=== PATIENT | female | born 1965 ===

== ENCOUNTER 2016-09-17 13:41 | Emergency (ER) | payer OTHER ==
[2016-09-17 13:42] VITALS: BMI 28.1
[2016-09-17 13:51] VITALS: BP 137/87; PULSE 70; RESP 16; TEMP 98.4; O2SAT 97
--- NOTE | 2016-09-17 13:51 | ED PDOC ---
Arrival/HPI - General Time Seen by Provider: 09/17/16 13:47 Historian: Patient - History of Present Illness Narrative History of Present Illness (Text): 09/17/16 13:48 51 y/o female, pmh including htn, nkda, post menopausal, c/o lt. elbow pain x 2 days. Pt. stated that she recently started exercising 2 days ago, noticed to have lt. elbow pain after the continuous/repetitive movement, no numbness or tingling, pain aggravated by left elbow extension with the resistance, no fever or chills, no chest pain or shortness of breath, no palpitation, no rash, no urinary symptoms, no other medical or psychological complaints. Past Medical History - Provider Review Nursing Documentation Reviewed: Yes - Infectious Disease Hx of Infectious Diseases: None - Cardiac Hx Hypertension: Yes - Pulmonary Hx Respiratory Disorders: No - Neurological Hx Migraine: Yes - HEENT Hx HEENT Disorder: No - Renal Hx Renal Disorder: No - Endocrine/Metabolic Hx Endocrine Disorders: No - Hematological/Oncological Hx Blood Disorders: No - Integumentary Hx Dermatological Disorder: No - Musculoskeletal/Rheumatological Hx Falls: No - Gastrointestinal Hx Gastrointestinal Disorders: No - Genitourinary/Gynecological Hx Genitourinary Disorders: No - Psychiatric Hx Psychophysiologic Disorder: No Hx Substance Use: No - Surgical History Hx Section: Yes Family/Social History - Physician Review Nursing Documentation Reviewed: Yes Family/Social History: Unknown Family HX Smoking Status: Never Smoked Hx Alcohol Use: No Hx Substance Use: No Allergies/Home Meds Allergies/Adverse Reactions: Allergies No Known Allergies Allergy (Verified 09/17/16 13:45) Review of Systems - Review of Systems Constitutional: absent: Fatigue, Fevers Eyes: absent: Vision Changes ENT: absent: Hearing Changes Respiratory: absent: SOB, Cough Cardiovascular: absent: Chest Pain Gastrointestinal: absent: Abdominal Pain, Nausea, Vomiting Musculoskeletal: Arthralgias. absent: Back Pain, Neck Pain, Joint Swelling, Myalgias Skin: absent: Rash, Pruritis, Skin Lesions Neurological: absent: Headache, Dizziness Psychiatric: absent: Anxiety, Depression, Suicidal Ideation Physical Exam Vital Signs Reviewed: Yes Temperature: Afebrile Blood Pressure: Normal Pulse: Regular Respiratory Rate: Normal Appearance: Positive for: Well-Appearing, Non-Toxic, Comfortable Pain Distress: Moderate Mental Status: Positive for: Alert and Oriented X 3 - Systems Exam Head: Present: Atraumatic, Normocephalic Pupils: Present: PERRL Extroacular Muscles: Present: EOMI Conjunctiva: Present: Normal Mouth: Present: Moist Mucous Membranes Pharnyx: No: ERYTHEMA, EXUDATE, TONSILS ENLARGED, Peritonsilar Swelling Neck: Present: Normal Range of Motion Respiratory/Chest: Present: Clear to Auscultation, Good Air Exchange. No: Respiratory Distress, Accessory Muscle Use Cardiovascular: Present: Regular Rate and Rhythm, Normal S1, S2. No: Murmurs Abdomen: Present: Normal Bowel Sounds. No: Tenderness, Distention, Peritoneal Signs Back: Present: Normal Inspection Upper Extremity: Present: Normal Inspection, Other (Lt. elbow: +ttp on the lateral epicondyle region with no swelling or redness, no erythematous or cellulitis, no streaking or ulcer, FROM without limitation with pain upon lt. elbow extension against the resistance, sensation intact, motor 5/5, +radial pulse, capillary refill< 2 seconds, neurovascular intact. ). No: Cyanosis, Edema Lower Extremity: Present: Normal Inspection. No: Edema Neurological: Present: GCS=15, CN II-XII Intact, Speech Normal Skin: Present: Warm, Dry, Normal Color. No: Rashes Psychiatric: Present: Alert, Oriented x 3, Normal Insight, Normal Concentration Medical Decision Making ED Course and Treatment: 09/17/16 13:51 -Pt. is post menopausal -Toradol IM -Discharge home with indomethacin, counter elbow brace, ice compression, avoid exercise, follow up with your own pmd and orthopedic within 2 days, return to the ER for any new or worsening signs or symptoms. - PA / MANUFACTURE SPECIALIST / Resident Statement MD/DO has reviewed & agrees with the documentation as recorded. Disposition/Present on Arrival - Present on Arrival Any Indicators Present on Arrival: No History of DVT/PE: No History of Uncontrolled Diabetes: No Urinary Catheter: No History of Decub. Ulcer: No History Surgical Site Infection Following: None - Disposition Have Diagnosis and Disposition been Completed?: Yes Diagnosis: Tennis elbow Disposition: HOME/ ROUTINE Disposition Time: 13:53 Patient Plan: Discharge Condition: GOOD Additional Instructions: Discharge home with indomethacin, counter elbow brace, ice compression, avoid exercise, follow up with your own pmd and orthopedic within 2 days, return to the ER for any new or worsening signs or symptoms. Prescriptions: Indomethacin [Indocin] 50 mg PO TID #30 cap Referrals: Get Carrillo MD [Staff Provider] - Follow up with primary [facility] at [facility] [Outside] - Follow up with primary Forms: WORK NOTE
== END 2016-09-17 14:16 | disposition home or self-care (01) ==
LOC: ED 13:41
DX: M77.12 Lateral epicondylitis, left elbow (principal)
CPT/HCPCS: 96372; 99282; J1885

== ENCOUNTER 2017-03-29 14:53 | Observation (INO) | payer OTHER ==
--- NOTE | 2017-03-29 15:10 | ED PDOC ---
Arrival/HPI - General Time Seen by Provider: 03/29/17 15:02 Historian: Patient, Family, Clinical Implementation Specialist (daughter) - Critical Care Critical Care Minutes: 60 minutes - History of Present Illness Narrative History of Present Illness (Text): 52yoF, htn, who states having generalized headache, with left sided weakness, and associated generalized chest pain. otherwise no n/v/keene/dizziness/sob/abd pain/pain with urination/numbness. 03/29/17 15:07 Time/Duration: 1 hour Past Medical History - Provider Review Nursing Documentation Reviewed: Yes - Travel History Have you recently traveled outside [place] w/in the past 3 mons?: No - Infectious Disease Hx of Infectious Diseases: None - Cardiac Hx Hypertension: Yes - Pulmonary Hx Respiratory Disorders: No - Neurological Hx Migraine: Yes - HEENT Hx HEENT Disorder: No - Renal Hx Renal Disorder: No - Endocrine/Metabolic Hx Endocrine Disorders: No - Hematological/Oncological Hx Blood Disorders: No - Integumentary Hx Dermatological Disorder: No - Musculoskeletal/Rheumatological Hx Falls: No - Gastrointestinal Hx Gastrointestinal Disorders: No - Genitourinary/Gynecological Hx Genitourinary Disorders: No - Psychiatric Hx Psychophysiologic Disorder: No Hx Substance Use: No - Surgical History Hx Section: Yes Family/Social History - Physician Review Nursing Documentation Reviewed: Yes Family/Social History: No Known Family HX Smoking Status: Never Smoked Hx Alcohol Use: No Hx Substance Use: No Allergies/Home Meds Allergies/Adverse Reactions: Allergies No Known Allergies Allergy (Verified 03/29/17 15:56) Home Medications: Home Meds Medication Instructions Recorded Confirmed Atenolol [Tenormin] 50 mg PO DAILY 03/29/17 03/29/17 Hctz 12.5 12.5 mg PO DAILY 03/29/17 03/29/17 Ibuprofen [Motrin Ib] 600 mg PO PRN PRN 03/29/17 03/29/17 Nitroglycerin [Nitrostat] 0.4 mg SL PRN PRN 03/29/17 03/29/17 Review of Systems - Review of Systems Constitutional: Fatigue Eyes: Normal ENT: Normal Respiratory: Normal Cardiovascular: Chest Pain Gastrointestinal: Normal Genitourinary Female: Normal Musculoskeletal: Normal Skin: Normal Neurological: Headache, Focal Weakness, Speech Changes Endocrine: Normal Hemo/Lymphatic: Normal Psychiatric: Normal Physical Exam Vital Signs Reviewed: Yes Vital Signs Temp Pulse Resp BP Pulse Ox 03/29/17 17:12 64 14 120/65 99 03/29/17 15:44 97.9 F 65 18 135/76 96 Appearance: Positive for: Well-Appearing, Non-Toxic, Comfortable Pain Distress: None Mental Status: Positive for: Alert and Oriented X 3 - Systems Exam Head: Present: Atraumatic, Normocephalic Pupils: Present: PERRL Extroacular Muscles: Present: EOMI Conjunctiva: Present: Normal Ears: Present: Normal Mouth: Present: Moist Mucous Membranes Pharnyx: Present: Normal Nose (External): Present: Atraumatic Nose (Internal): Present: Normal Inspection Neck: Present: Normal Range of Motion Respiratory/Chest: Present: Clear to Auscultation, Good Air Exchange Cardiovascular: Present: Regular Rate and Rhythm Abdomen: No: Tenderness, Distention, Normal Bowel Sounds, Peritoneal Signs, Rebound, Guarding, McBurney's Point Tender, Rovsing's Sign Present, Hernias, Feeding Tubes, Ostomy Tubes, Mass/Organomegaly, Scars, Other Upper Extremity: Present: Normal Inspection Lower Extremity: Present: Normal Inspection Neurological: Present: GCS=15, CN II-XII Intact, Motor Func Grossly Intact, Other (speech slowed, left upper/lower subtle weakness vs right.) Skin: Present: Warm, Normal Color Psychiatric: Present: Alert, Oriented x 3, Normal Insight Medical Decision Making ED Course and Treatment: 03/29/2017 15:[address] IMPRESSION: Normal CT of the Head. Dictator: Roseann Kam MD 03/29/17 16:03 you were treated in the ED today for left facial tingling and left sided weakness and initially chest pain which has resolved otherwise without any nausea/vomiting/headache/dizziness/difficulty breathing/chest pain/abdomen pain/ numbness/tingling/loss of limb function/pain with urination. trop neg, wbc neg, radiology ct head negative and chest xray negative, ECG nsr, discussed with Dr. Jack neurology who stated MRI brain without contrast and if negative cleared from stroke, observed done in the ED with improvement. 03/29/2017 16:15 Chest X-ray IMPRESSION: No interval acute cardiopulmonary pathology noted. Dictator: Sana Kam MD 03/29/17 16:29 CXR no acute. 03/29/17 16:59 03/29/17 18:36 d/w Dr. Brand and Dr. Peoples regarding pt with resolved symptoms of left sided weakness, chest pain, d-dimer pending and MRI pending and hospital team to followup. once d-dimer returns will admit if negative. can give dose of asprin 324mg per Dr. Brand. 03/29/17 19:46 d-dimer 218. 03/29/17 19:47 03/29/17 19:47 d;w Dr. Peoples and pt to be admitted to Dr. Gao - Lab Interpretations Lab Results: 03/29/17 15:28 03/29/17 15:28 Lab Results 03/29/17 16:32: D-Dimer, Quantitative 218 03/29/17 16:32: PT 12.0, INR 1.10 H, APTT 28.5 03/29/17 15:47: POC Glucose (mg/dL) 113 H 03/29/17 15:45: Blood Type Confirm O POSITIVE 03/29/17 15:28: Blood Type O POSITIVE, Antibody Screen Negative, BBK History Checked No verified bt 03/29/17 15:28: Sodium 141, Potassium 3.9, Chloride 100, Carbon Dioxide 31, Anion Gap 13, BUN 14, Creatinine 0.8, Est GFR ( Amer) > 60, Est GFR (Non- Af Amer) > 60, Random Glucose 99, Calcium 10.0, Total Bilirubin 1.0, AST 37 H, ALT 28, Alkaline Phosphatase 123, Troponin I < 0.01, NT-Pro-B Natriuret Pep 69.2 , Total Protein 8.9 H, Albumin 4.4, Globulin 4.5, Albumin/Globulin Ratio 1.0 L, Triglycerides 218 H, Cholesterol 217 H, LDL Cholesterol Direct 119, HDL Cholesterol 57 03/29/17 15:28: WBC 5.7 D, RBC 4.43, Hgb 12.9, Hct 39.1, MCV 88.3, MCH 29.1, MCHC 33.0, RDW 13.9, Plt Count 237, MPV 9.4, Gran % 62.6, Lymph % (Auto) 28.0, Mckinley % (Auto) 6.5 H, Eos % (Auto) 2.5, Baso % (Auto) 0.4, Gran # 3.54, Lymph # 1.6, Mckinley # 0.4, Eos # 0.1, Baso # 0.02 I have reviewed the lab results: Yes - RAD Interpretation Radiology Orders: 03/29/17 14:57 HEAD W/O (CODE STROKE) [CT] Stat 03/29/17 15:04 CHEST PORTABLE [RAD] Stat 03/29/17 16:28 BRAIN WITHOUT CONTRAST [MRI] Stat Senior Manufacturing Supervisor: Radiologist - EKG Interpretation Interpreted by ED Physician: Yes (NSR, flipped t waves avr, v1, iii, v4, v6, flattened ii, avf, v5) Type: 12 lead EKG - Medication Orders Current Medication Orders: Discontinued Medications Aspirin (Aspirin Chewable) 324 mg PO STAT STA Stop: 03/29/17 18:41 Last Admin: 03/29/17 19:34 Dose: 324 mg NIHSS Stroke Scale 3 - Date/Time Evaluation Performed Date Performed: 03/29/17 Time Performed: 15:00 When Was NIHSS Performed: Code Stroke - How Severe is the Stroke Level of Consciousness: 0=Alert LOC to Questions: 0=Both comments correct LOC to commands: 0=Obeys both correctly Best Gaze: 0=Normal Visual: 0=No visual loss Facial: 0=Normal Motor Arm - Left: 0=No drift Motor Arm - Right: 0=No drift Motor Leg - Left: 0=No drift Motor Leg - Right: 0=No drift Limb Ataxia: 0=Absent Sensory: 0=Normal Best Language: 0=No aphasia Dysarthia: 0=Normal articulation Extinction & Inattention (Neglect): 0=Normal, no object Score: 0 Disposition/Present on Arrival - Present on Arrival Any Indicators Present on Arrival: No History of DVT/PE: No History of Uncontrolled Diabetes: No Urinary Catheter: No History Surgical Site Infection Following: None - Disposition Have Diagnosis and Disposition been Completed?: Yes Diagnosis: Tingling, Chest pain Disposition: HOSPITALIZED Disposition Time: 19:48 Patient Plan: Telemetry Condition: IMPROVED Discharge Instructions (ExitCare): Chest Pain (ED) Referrals: Gail Harley [Primary Care Provider] - Follow up with primary
--- NOTE | 2017-03-29 15:11 | CT ---
PROCEDURE: CT HEAD WITHOUT CONTRAST. HISTORY: code stroke COMPARISON: None available. TECHNIQUE: Axial computed tomography images were obtained through the head/brain without intravenous contrast. Radiation dose: Total exam DLP = 678 mGy-cm. This CT exam was performed using one or more of the following dose reduction techniques: Automated exposure control, adjustment of the mA and/or kV according to patient size, and/or use of iterative reconstruction technique. FINDINGS: HEMORRHAGE: No intracranial hemorrhage. BRAIN: No mass effect or edema. No atrophy or chronic microvascular ischemic changes. VENTRICLES: Unremarkable. No hydrocephalus. CALVARIUM: Unremarkable. PARANASAL SINUSES: Unremarkable as visualized. No significant inflammatory changes. MASTOID AIR CELLS: Unremarkable as visualized. No inflammatory changes. OTHER FINDINGS: None. IMPRESSION: Normal CT of the Head.
[2017-03-29 15:44] LABS: BASO # 0.02 K/mm3 (0.0-2.0); BASO % 0.4 % (0.0-3.0); EOS # 0.1 (0.0-0.7); EOS % 2.5 % (1.5-5.0); GRAN # 3.54 (1.4-6.5); GRAN % 62.6 % (50.0-68.0); HEMATOCRIT 39.1 % (36.0-48.0); LYMPH # 1.6 (1.2-3.4); MEAN CELL VOLUME 88.3 fl (80.0-105.0); MEAN CORPUSCULAR HEMOGLOBIN 29.1 pg (25.0-35.0); MEAN PLATELET VOLUME 9.4 fl (7.0-11.0); MONO # 0.4 (0.1-0.6); MONO % 6.5 % (1.0-6.0); RED CELL DISTRIBUTION WIDTH 13.9 % (11.5-14.5); WHITE BLOOD COUNT 5.7 10^3/ul (4.5-11.0)
[2017-03-29 16:00] LABS: GFR AFRICAN-AMERICAN > 60; GLUCOSE,RANDOM 99 mg/dL (70-110); TOTAL PROTEIN 8.9 g/dL (5.8-8.3)
[2017-03-29 16:06] LABS: ALKALINE PHOSPHATASE 123 U/L (38-126); ALT/SGPT 28 U/L (7-56); AST/SGOT 37 U/L (14-36); BLOOD UREA NITROGEN 14 mg/dL (7-21); CARBON DIOXIDE 31 mmol/L (21-33); CHLORIDE 100 mmol/L (98-107); CHOLESTEROL 217 mg/dL (130-200); POTASSIUM 3.9 mmol/L (3.6-5.0); SODIUM 141 mmol/L (132-148)
[2017-03-29 16:10] LABS: TROPONIN I < 0.01 ng/mL
--- NOTE | 2017-03-29 16:16 | RAD ---
HISTORY: 52yoF, chest pain COMPARISON: 10/26/2015 FINDINGS: LUNGS: No active pulmonary disease. PLEURA: No significant pleural effusion identified, no pneumothorax apparent. CARDIOVASCULAR: Normal. Tortuous thoracic aorta-similar OSSEOUS STRUCTURES: Thoracic spondylosis. Bilateral shoulder arthrosis VISUALIZED UPPER ABDOMEN: Normal. OTHER FINDINGS: None. IMPRESSION: No interval acute cardiopulmonary pathology noted
[2017-03-29 16:55] LABS: INR 1.1 (0.93-1.08); PARTIAL THROMBOPLASTIN TIME 28.5 Seconds (25.1-36.5)
--- NOTE | 2017-03-29 20:21 | MRI ---
EXAM: MR Head Without Intravenous Contrast EXAM DATE/TIME: 03/29/2017 6:03 PM CLINICAL HISTORY: 52 years old, female; Signs and symptoms; Weakness, extremity; Left; Patient HX: Left side weakness and slurred speech; Additional info: 52yof, w weakness, d/w dr. Jack neurology rec TECHNIQUE: Magnetic resonance images of the head/brain without intravenous contrast in multiple planes. COMPARISON: Head CT done earlier on the same day, at 3:05 PM. FINDINGS: BRAIN: No significant acute abnormality identified. No evidence of restricted diffusion/acute infarct. No signal abnormality seen suggest acute intracranial hemorrhage. No acute extra-axial fluid collections visualized. No evidence of significant mass effect within the brain. VENTRICLES: No evidence of significant hydrocephalus. BONES/JOINTS: No acute bony abnormality identified. SINUSES: No evidence of sinus fluid levels. MASTOID AIR CELLS: Mastoid air cells appear clear. ORBITS: No acute intraorbital abnormality seen. IMPRESSION: - No evidence of acute infarct or other significant acute intracranial abnormality. - See above for remaining findings.
--- NOTE | 2017-03-29 21:41 | CP.PCM.HP ---
<Alexa Pedraza - Last Filed: 03/29/17 22:14> History of Present Illness - History of Present Illness History of Present Illness: 52 year old female with a past medical history significant for hypertension and angina who presents with 1 day of left sided numbness, weakness , and a syncopal episode. She woke up today at 8:00 with left leg numbness that gradually progressed up the trunk to the left face, with concurrent weakness, namely in the left lower extremity. By 12:00 she had dysesthesias affecting the left side of the face and body. Furthermore, at 2:19 PM she passed out in the restroom. This passing out was witnessed, and the observer states she was shaky before falling, but not convulsing, loss of bowel or vladder incontinence. The patient report hitting the top of head, but denies any pain at the moment. The patient admits to LOC for 5-10 seconds, and was woken up by a grand daughter. EMS was called and the patient was brought to [facility]. She admits to blurry vision and genrealized weakness preceding the passing out, but denies any palpitations , chest pain, nausea, tongue biting, or convulsions. Important to note, patient recently was prescribed NG SL for chest pain. She reports chest pain associated with exertion and dyspnea for which her PMD prescribed her NG SL on Monday. She reports taking it twice since then (Monday and Monday, but denies taking it today) PMD: Dr. Gayle PMH: Hypertension, recently diagnosed angina PSH: 1 Allegies: NKDA Family History: Father of prostate cancer, mother alive with hypertension Social: Denies smoking, alcohol, or illicit drugs. Present on Admission - Present on Admission Any Indicators Present on Admission: No Review of Systems - Constitutional Constitutional: absent: Fatigue, Fever, Frequent Falls - EENT Eyes: Blurred Vision. absent: Loss of Peripheral Vision Nose/Mouth/Throat: absent: Nasal Congestion, Post Nasal Drip - Cardiovascular Cardiovascular: Chest Pain. absent: Palpitations - Respiratory Respiratory: absent: Cough, Dyspnea, Hemoptysis - Gastrointestinal Gastrointestinal: absent: Abdominal Pain, Belching, Change in Stool Character - Genitourinary Genitourinary: absent: Change in Urinary Stream, Difficulty Urinating, Nocturia - Musculoskeletal Musculoskeletal: absent: Arthralgias, Atrophy, Limited Range of Motion - Integumentary Integumentary: absent: Alopecia, Change in Pigmentation, Hirsutism - Neurological Neurological: Burning Sensations, Numbness, Tingling - Psychiatric Psychiatric: absent: Change in Libido, Confusion, Homicidal Ideation - Endocrine Endocrine: absent: Change in Body Appearance, Increase in Ring/Shoe/Hat Size - Hematologic/Lymphatic Hematologic: absent: Easy Bleeding, Easy Bruising Past Patient History - Infectious Disease Hx of Infectious Diseases: None - Past Social History Smoking Status: Never Smoked - CARDIAC Hx Hypertension: Yes - PULMONARY Hx Respiratory Disorders: No - NEUROLOGICAL Hx Migraine: Yes - HEENT Hx HEENT Problems: No - RENAL Hx Chronic Kidney Disease: No - ENDOCRINE/METABOLIC Hx Endocrine Disorders: No - HEMATOLOGICAL/ONCOLOGICAL Hx Blood Disorders: No - INTEGUMENTARY Hx Dermatological Problems: No - MUSCULOSKELETAL/RHEUMATOLOGICAL Hx Falls: No - GASTROINTESTINAL Hx Gastrointestinal Disorders: No - GENITOURINARY/GYNECOLOGICAL Hx Genitourinary Disorders: No - PSYCHIATRIC Hx Psychophysiologic Disorder: No Hx Substance Use: No - SURGICAL HISTORY Hx Section: Yes Meds Allergies/Adverse Reactions: Allergies Allergy/AdvReac Type Severity Reaction Status Date / Time No Known Allergies Allergy Verified 03/29/17 15:56 Physical Exam - Constitutional Appears: Well, Non-toxic - Head Exam Head Exam: ATRAUMATIC, NORMOCEPHALIC - Eye Exam Eye Exam: EOMI, Normal appearance Pupil Exam: NORMAL ACCOMODATION, PERRL - ENT Exam ENT Exam: Mucous Membranes Moist, Normal Oropharynx - Neck Exam Neck exam: Positive for: Normal Inspection - Respiratory Exam Respiratory Exam: Clear to Auscultation Bilateral, NORMAL BREATHING PATTERN - Cardiovascular Exam Cardiovascular Exam: RRR, +S1, +S2 - GI/Abdominal Exam GI & Abdominal Exam: Normal Bowel Sounds, Soft - Extremities Exam Extremities exam: Positive for: normal inspection, pedal edema. Negative for: calf tenderness - Back Exam Back exam: NORMAL INSPECTION. absent: CVA tenderness (L), CVA tenderness (R) - Neurological Exam Neurological exam: Alert, CN II-XII Intact, Oriented x3 Additional comments: left hip flexion 4/5 compared to 5/5 right hip flexion - Psychiatric Exam Psychiatric exam: Normal Affect, Normal Mood - Skin Skin Exam: Dry, Intact, Normal Color, Warm Results - Vital Signs Recent Vital Signs: Last Vital Signs Temp 97.9 F 03/29/17 15:44 Pulse 64 03/29/17 17:12 Resp 14 03/29/17 17:12 BP 120/65 03/29/17 17:12 Pulse Ox 99 03/29/17 17:12 - Labs Result Diagrams: 03/29/17 15:28 03/29/17 15:28 - EKG Data EKG shows normal: Sinus rhythm - EKG Data EKG comments: non-specific ST-T wave changes, no acute changes Assessment & Plan - Assessment and Plan (Free Text) Assessment: 52 year old female with a past medical history of hypertension and recently diagnosed angina who presented to [facility] for left sided dysesthesias, weakness, and a syncopal episode. Plan: 1) CVA versus TIA: Patient neurological symptoms left sided symptoms have resolved - CT head read as normal - MRI reads as no evidence of acute infarct or other significant acute intracranial abnormality. - Neurochecks q2h - Patient passed bedside swallow evaluation - Admitted to telemetry for cardiac monitoring - Carotid and vertebral US bilaterally - Transthoracic Echocardiogram - Aspirin 81 mg PO daily - Lipitor 40 mg DIN (starting today) LDL was 119. - Neurology consulted, Dr. Gulshan Waite 2) Syncope with associated chest pain - CXR shows tortous thoracic aorta. Thoracic spondylosis. B/L shoulder arthrosis - Initial EKG was NSR, with minimal voltage criteria for LVH, and non-specific T wave changes - Repeat EKG ordered in the AM. - HgbA1c ordered, pending - TSH ordered, pending - Suglingual Nitroglycerin PRN for chest pain - Cardiology consult, Dr. Hernandez 3) Hypertension - Atenolol 50 mg PO Daily - Hydrochlorothiazide 12.5 PO daily 4) DVT/GI prophylaxis - Lovenox 40 mg SC daily - Protonix 20 mg PO daily 5) Nutrition - Heart Healthy Diet, 2 grams of Na <Maddy Gao - Last Filed: 03/30/17 05:39> Results - Vital Signs Recent Vital Signs: Last Vital Signs Temp 98.2 F 03/30/17 01:19 Pulse 61 03/30/17 02:00 Resp 18 03/30/17 01:19 BP 163/92 H 03/30/17 01:19 Pulse Ox 99 03/29/17 17:12 - Labs Result Diagrams: 03/30/17 03:20 12/21/17 03:20 Labs: Laboratory Results - last 24 hr 03/29/17 03/29/17 03/29/17 21:40 22:03 22:03 WBC RBC Hgb Hct MCV MCH MCHC RDW Plt Count MPV Gran % Lymph % (Auto) Bennett % (Auto) Eos % (Auto) Baso % (Auto) Gran # Lymph # Bennett # Eos # Baso # Sodium Potassium Chloride Carbon Dioxide Anion Gap BUN Creatinine Est GFR ( Amer) Est GFR (Non-Af Amer) POC Glucose (mg/dL) 81 Random Glucose Calcium Total Bilirubin AST ALT Alkaline Phosphatase Troponin I < 0.01 Total Protein Albumin Globulin Albumin/Globulin Ratio [facility] 3rd Generation 3.88 03/30/17 03/30/17 03:20 03:20 WBC 5.1 RBC 4.23 Hgb 12.3 Hct 37.2 MCV 87.9 MCH 29.1 MCHC 33.1 RDW 13.9 Plt Count 201 MPV 9.0 Gran % 59.6 Lymph % (Auto) 29.7 Bennett % (Auto) 7.6 H Eos % (Auto) 2.9 Baso % (Auto) 0.2 Gran # 3.05 Lymph # 1.5 Bennett # 0.4 Eos # 0.2 Baso # 0.01 Sodium 140 Potassium 3.4 L Chloride 102 Carbon Dioxide 28 Anion Gap 13 BUN 11 Creatinine 0.6 L Est GFR ( Amer) > 60 Est GFR (Non-Af Amer) > 60 POC Glucose (mg/dL) Random Glucose 92 Calcium 9.3 Total Bilirubin 1.0 AST 30 ALT 29 Alkaline Phosphatase 117 Troponin I < 0.01 Total Protein 7.8 Albumin 3.8 Globulin 4.0 Albumin/Globulin Ratio 1.0 L [facility] 3rd Generation Attending/Attestation - Attestation I have personally seen and examined this patient.: Yes I have fully participated in the care of the patient.: Yes I have reviewed all pertinent clinical information: Yes Notes (Text): 03/30/17 05:38 Patient was seen when she was in bed # 5 in the ER . Agree with history, physical examination , assessment and plan.
[2017-03-30 01:36] VITALS: BMI 28.8
[2017-03-30 03:33] LABS: BASO # 0.01 K/mm3 (0.0-2.0); BASO % 0.2 % (0.0-3.0); EOS # 0.2 (0.0-0.7); EOS % 2.9 % (1.5-5.0); GRAN # 3.05 (1.4-6.5); GRAN % 59.6 % (50.0-68.0); HEMATOCRIT 37.2 % (36.0-48.0); LYMPH # 1.5 (1.2-3.4); LYMPH % 29.7 % (22.0-35.0); MEAN CELL VOLUME 87.9 fl (80.0-105.0); MEAN CORPUSCULAR HEMOGLOBIN 29.1 pg (25.0-35.0); MEAN CORPUSCULAR HGB CONC 33.1 g/dl (31.0-37.0); MONO # 0.4 (0.1-0.6); MONO % 7.6 % (1.0-6.0); RED CELL DISTRIBUTION WIDTH 13.9 % (11.5-14.5); WHITE BLOOD COUNT 5.1 10^3/ul (4.5-11.0)
[2017-03-30 04:26] LABS: ALKALINE PHOSPHATASE 117 U/L (38-126); ALT/SGPT 29 U/L (7-56); AST/SGOT 30 U/L (14-36); BLOOD UREA NITROGEN 11 mg/dL (7-21); CALCIUM 9.3 mg/dL (8.4-10.5); CARBON DIOXIDE 28 mmol/L (21-33); CHLORIDE 102 mmol/L (98-107); GFR AFRICAN-AMERICAN > 60; GLUCOSE,RANDOM 92 mg/dL (70-110); SODIUM 140 mmol/L (132-148); TOTAL PROTEIN 7.8 g/dL (5.8-8.3)
[2017-03-30 04:28] LABS: POTASSIUM 3.4 mmol/L (3.6-5.0)
[2017-03-30 04:29] LABS: TROPONIN I < 0.01 ng/mL
[2017-03-30] MEDS: Pantoprazole 20 mg EC Tab PO SCH (05:53)
[2017-03-30] MEDS: Potassium Chloride 20 mEq ER Tab PO SCH ×2 (08:03→10:21)
--- NOTE | 2017-03-30 10:09 | CARD ---
APPROVED REPORT EKG Measurement Heart [id number] <Conclusion> Normal sinus rhythm Minimal voltage criteria for LVH, may be normal variant Nonspecific ST and T wave abnormality
[2017-03-30] MEDS: Enoxaparin 40 mg Syringe SC SCH (10:21)
--- NOTE | 2017-03-30 10:39 | CARD ---
APPROVED REPORT EKG Measurement Heart [id number] <Conclusion> Normal sinus rhythm Minimal voltage criteria for LVH, may be normal variant Nonspecific T wave abnormality No change
--- NOTE | 2017-03-30 15:29 | CP.PCM.PN ---
<Vicky Alanis - Last Filed: 03/30/17 15:26> Subjective - Date & Time of Evaluation Date of Evaluation: 03/30/17 Time of Evaluation: 15:26 - Subjective Subjective: Vicky Alanis, PGY1, Medicine Progress Note for Dr Brand: Patient seen and examined at bedside. No acute events overnight. Pt denies any numbness, weakness, paresthesias, cp, sob, dizziness, abdominal pain, dysuria, hematuria, constipation/diarrhea. States that she has been experiencing increased urinary frequency. Objective - Vital Signs/Intake and Output Vital Signs (last 24 hours): Temp Pulse Resp BP Pulse Ox 98.1 F 67 20 133/86 99 03/30/17 06:00 03/30/17 14:00 03/30/17 06:00 03/30/17 10:22 03/30/17 06:00 Intake and Output: 03/30/17 03/30/17 06:59 18:59 Intake Total 340 300 Output Total 0 600 Balance 340 -300 - Medications Medications: Current Medications Aspirin (Ecotrin) 81 mg PO 0800 [facility] Last Admin: 03/30/17 08:03 Dose: 81 mg Atenolol (Tenormin) 50 mg PO DAILY [facility] Last Admin: 03/30/17 10:22 Dose: 50 mg Atorvastatin Calcium (Lipitor) 40 mg PO DIN [facility] Last Admin: 03/29/17 23:03 Dose: 40 mg Enoxaparin Sodium (Lovenox) 40 mg SC DAILY [facility] PRN Reason: Protocol Last Admin: 03/30/17 10:21 Dose: 40 mg Hydrochlorothiazide (Microzide) 12.5 mg PO DAILY [facility] Last Admin: 03/30/17 10:21 Dose: 12.5 mg Nitroglycerin (Nitrostat Sl Tab) 0.4 mg SL Q5MIN PRN PRN Reason: chest pain Pantoprazole Sodium (Protonix Ec Tab) 20 mg PO 0600 [facility] Last Admin: 03/30/17 05:53 Dose: 20 mg - Labs Labs: 03/30/17 03:20 03/30/17 03:20 PT 12.0 SECONDS (9.4-12.5) 03/29/17 16:32 INR 1.10 (0.93-1.08) H 03/29/17 16:32 APTT 28.5 Seconds (25.1-36.5) 03/29/17 16:32 - Constitutional Appears: Non-toxic, No Acute Distress, Older Than Stated Age - Head Exam Head Exam: ATRAUMATIC, NORMOCEPHALIC - Eye Exam Eye Exam: EOMI, PERRL. absent: Conjunctival injection, Scleral icterus Pupil Exam: PERRL - ENT Exam ENT Exam: Mucous Membranes Moist - Neck Exam Neck Exam: Full ROM - Respiratory Exam Respiratory Exam: Clear to Ausculation Bilateral. absent: Accessory Muscle Use , Chest Wall Tenderness, Respiratory Distress - Cardiovascular Exam Cardiovascular Exam: REGULAR RHYTHM, RRR, +S1, +S2. absent: Murmur - GI/Abdominal Exam GI & Abdominal Exam: Soft, Normal Bowel Sounds. absent: Distended, Guarding, Tenderness, Hyperactive Bowel Sounds, Mass, Organomegaly, Rebound - Extremities Exam Extremities Exam: absent: Calf Tenderness, Pedal Edema - Back Exam Back Exam: NORMAL INSPECTION - Neurological Exam Neurological Exam: Alert, Awake, Oriented x3 - Psychiatric Exam Psychiatric exam: Normal Affect - Skin Skin Exam: Dry, Normal Color, Warm Assessment and Plan - Assessment and Plan (Free Text) Assessment: 52 year old female with a past medical history of hypertension and recently diagnosed angina, [place] [facility] [place]ided transient dysesthesias, weakness, syncopal episode, and chest pain: Transient left sided weakness/dysesthesias: 2/2 likely TIA vs CVA - Pt's neurological symptoms lasted 5 hours, have now resolved. - CT head neg - MRI shows no evidence of acute infarct or other significant acute intracranial abnormality. - Neurochecks q2h - Patient passed bedside swallow evaluation - tele for cardiac monitoring - F/u carotid US and echocardiogram - Given ASA 325 mg. started on Aspirin 81 mg PO daily and Lipitor 40 mg DIN. LDL was 119, maintain <70. - Neurology consulted, Dr. Gulshan Waite. appreciate recs. - Cont to monitor neuro status Syncope with associated chest pain: 2/2 orthostatic changes vs cardiac arrhythmias vs cardiac ischemia vs abberrant cardiac pathways - CXR shows tortous thoracic aorta. Thoracic spondylosis. B/L shoulder arthrosis - Initial EKG was NSR, HR 63, with minimal voltage criteria for LVH, and non- specific T wave changes - Pt reports no previous stress test or cardiac cath. - Trop neg x3. - HgbA1c 5.4, CRP 4.36 - TSH 3.88 - F/u echocardiogram - Sublingual Nitroglycerin PRN for chest pain - Cardiology consult, Dr. Hernandez. Appreciate recs. Mild Hypokalemia: - K 3.4, repleted. - cont to monitor Hx of Hypertension: - Atenolol 50 mg PO Daily - Hydrochlorothiazide 12.5 PO daily DVT/GI prophylaxis: - SCDs - Protonix 20 mg PO daily Nutrition: - Heart Healthy Diet, 2 grams of Na Dispo: Lives at home with daughter. Case seen and discussed with Dr Brand. Vicky Alanis, PGY1 <Keena Brand - Last Filed: 03/30/17 15:52> Objective - Vital Signs/Intake and Output Vital Signs (last 24 hours): Temp Pulse Resp BP Pulse Ox 98.1 F 67 20 133/86 99 03/30/17 06:00 03/30/17 14:00 03/30/17 06:00 03/30/17 10:22 03/30/17 06:00 Intake and Output: 03/30/17 03/30/17 06:59 18:59 Intake Total 340 300 Output Total 0 600 Balance 340 -300 - Medications Medications: Current Medications Aspirin (Ecotrin) 81 mg PO 0800 [facility] Last Admin: 03/30/17 08:03 Dose: 81 mg Atenolol (Tenormin) 50 mg PO DAILY [facility] Last Admin: 03/30/17 10:22 Dose: 50 mg Atorvastatin Calcium (Lipitor) 40 mg PO DIN [facility] Last Admin: 03/29/17 23:03 Dose: 40 mg Enoxaparin Sodium (Lovenox) 40 mg SC DAILY [facility] PRN Reason: Protocol Last Admin: 03/30/17 10:21 Dose: 40 mg Hydrochlorothiazide (Microzide) 12.5 mg PO DAILY [facility] Last Admin: 03/30/17 10:21 Dose: 12.5 mg Nitroglycerin (Nitrostat Sl Tab) 0.4 mg SL Q5MIN PRN PRN Reason: chest pain Pantoprazole Sodium (Protonix Ec Tab) 20 mg PO 0600 [facility] Last Admin: 03/30/17 05:53 Dose: 20 mg Potassium Chloride (Klor-Con 10) 20 meq PO STAT STA Stop: 03/30/17 15:44 - Labs Labs: 03/30/17 03:20 03/30/17 03:20 PT 12.0 SECONDS (9.4-12.5) 03/29/17 16:32 INR 1.10 (0.93-1.08) H 03/29/17 16:32 APTT 28.5 Seconds (25.1-36.5) 03/29/17 16:32 Attending/Attestation - Attestation I have personally seen and examined this patient.: Yes I have fully participated in the care of the patient.: Yes I have reviewed all pertinent clinical information, including history, physical exam and plan: Yes Notes (Text): 03/30/17 15:48 52 year old female with past medical history of hypertension who presented last night with complaint of transient left sided weakness. She also complained of syncopal episode and intermittent episodes of chest pain. CT head and MRI brain were negative for acute findings. Echocardiogram and carotid dopplers were done today with pending report. Serial cardiac enzymes were negative and ACS has been ruled out. Cardiology, neurology and PT evaluation are pending. Continue with aspirin and statin. She is also on atenolol. Daughter is also at bedside and questions were answered. Keena Brand MD Hospitalist.
[2017-03-30] MEDS ORDERED: Potassium Chloride 20 mEq ER Tab PO STA (15:43)
--- NOTE | 2017-03-30 17:23 | US ---
PROCEDURE: Bilateral carotid artery duplex ultrasound HISTORY: Carotid stenosis TIA PHYSICIAN(S): French Dawn MD. TECHNIQUE: Duplex sonography and color-flow Doppler were used to evaluate the carotid bifurcations and limited segments of the vertebral arteries bilaterally. FINDINGS: There is mild smooth heterogeneous plaque noted at the carotid bifurcations bilaterally. The peak systolic velocity in the proximal right internal carotid artery is 89 cm/sec. This corresponds to a 20 to 39% proximal right ICA stenosis. Normal systolic velocities are noted in the proximal right external carotid artery. There is antegrade flow in the right vertebral artery. The peak systolic velocity in the proximal left internal carotid artery is 79 cm/sec. This corresponds to a 20 to 39% proximal left ICA stenosis. Normal systolic velocities are noted in the proximal left external carotid artery. There is antegrade flow in the left vertebral artery. IMPRESSION: 1. Bilateral 20-39% proximal ICA stenoses. 2. Antegrade flow in both vertebral arteries.
--- NOTE | 2017-03-31 00:28 | CON ---
CARDIOLOGY CONSULTATION REASON FOR CONSULTATION: Syncopal episode. HISTORY OF PRESENT ILLNESS: History is obtained from the patient's daughter at the bedside. The patient is 52-year-old female who has no known prior cardiac history. She did call her daughter while the daughter was at work complaining of numbness in the left side of the body that started in the left leg and advanced higher up to the left arm and the left side of the face. The patient has difficulty articulating her words according to the daughter when she heard her on the phone. The daughter contacted her [id number] who has witnessed syncopal episodes which was conveyed to the daughter as the patient was shaking and then fell to the ground. There was no reported urinary or fecal incontinence or tongue biting. The patient at this time recovered from any numbness in the left side of her body and has normal speech articulation. There is no history of prior stroke. MEDICATIONS: Aspirin 81 mg once a day, Lipitor 40 mg once a day, Lovenox 40 mg subcutaneous once a day, hydrochlorothiazide 12.5 mg once a day, Protonix 40 mg once a day, atenolol 50 mg once a day. REVIEW OF SYSTEMS: No fever or chills. No vomiting or diarrhea and no retrosternal chest pain. PHYSICAL EXAMINATION GENERAL: Patient is a middle-aged female, who does not appear to be in acute distress at this time. VITAL SIGNS: Blood pressure 130/86, heart rate 72, temperature 98.1, respirations 20. HEENT: Normocephalic. NECK: No JVD. CHEST: Clear. HEART: S1, S2 regular. ABDOMEN: Soft. EXTREMITIES: No edema. LABORATORY DATA: Hemoglobin, hematocrit, white count and platelet count are within normal limit. SMA-7 is within normal limit except for creatinine of 0.6 and potassium of 3.4. Yesterday SMA-7 was completely within normal limit. There sets of troponin's are negative. Total cholesterol is 217, triglyceride 218, both are elevated. TSH level is within normal limit. EKG revealed normal sinus rhythm, minimal voltage criteria for LVH, nonspecific ST-T wave change, heart rate 63. Chest x-ray, no interval acute cardiopulmonary pathology noted. Brain MRI, no evidence of acute infarct or other significant acute intracranial abnormality. Head CT scan is normal study. Carotid ultrasound was performed, but the report is still pending. ASSESSMENT: 1. Rule out transient ischemic attack. 2. Hypokalemia. 3. Hyperlipidemia. RECOMMENDATIONS: Continue aspirin 81 mg once a day, Lipitor 40 mg once a day, Lovenox 40 mg once a day, hydrochlorothiazide 12.5 mg daily, atenolol 50 mg once a day, start K-Dur 20 mEq orally daily. I will follow the echocardiac study that was performed today. Jamaal Hernandez MD
--- NOTE | 2017-03-31 00:45 | CON ---
DATE: HISTORY OF PRESENT ILLNESS: This is a 52-year-old female with past medical history of hypertension and presents to the hospital with left-sided numbness and weakness and also had a syncopal episode, and was brought to the hospital. No headache. No dizziness. The patient passed out. She felt shaky before falling. Admits to loss of consciousness for 5 to 10 seconds. Called the EMS. PAST MEDICAL HISTORY: Hypertension and angina. ALLERGIES: NO KNOWN DRUG ALLERGIES. SOCIAL HISTORY: Does not smoke, does not drink. PHYSICAL EXAMINATION VITAL SIGNS: Blood pressure 120/65. HEENT: Normocephalic, atraumatic. NECK: Supple. NEUROLOGIC: Awake and oriented to self and place. No aphasia. Cranial nerve II through XII are tested. Pupils reactive. Sensory appears intact. Cerebellar, gait, deferred. IMPRESSION: A 52-year-old female with a past medical history of hypertension and angina, who came with left-sided numbness and syncopal episode, possibly transient ischemic attack. CAT scan of the head was negative. MRI negative. PLAN: Continue present management. We will follow up. The patient is on aspirin. Gulshan Waite MD
[2017-03-31] MEDS: Pantoprazole 20 mg EC Tab PO SCH (05:51)
[2017-03-31 06:15] LABS: BASO # 0.01 K/mm3 (0.0-2.0); BASO % 0.2 % (0.0-3.0); EOS # 0.2 (0.0-0.7); EOS % 3.5 % (1.5-5.0); GRAN # 3.24 (1.4-6.5); GRAN % 63.6 % (50.0-68.0); HEMATOCRIT 37.5 % (36.0-48.0); LYMPH # 1.2 (1.2-3.4); LYMPH % 22.9 % (22.0-35.0); MEAN CELL VOLUME 89.1 fl (80.0-105.0); MEAN CORPUSCULAR HEMOGLOBIN 28.5 pg (25.0-35.0); MEAN PLATELET VOLUME 9.4 fl (7.0-11.0); MONO # 0.5 (0.1-0.6); MONO % 9.8 % (1.0-6.0); WHITE BLOOD COUNT 5.1 10^3/ul (4.5-11.0)
[2017-03-31 06:17] VITALS: O2SAT 95
[2017-03-31 06:42] LABS: ALKALINE PHOSPHATASE 114 U/L (38-126); ALT/SGPT 21 U/L (7-56); AST/SGOT 43 U/L (14-36); BILIRUBIN,TOTAL 0.9 mg/dL (0.2-1.3); BLOOD UREA NITROGEN 19 mg/dL (7-21); CALCIUM 9.2 mg/dL (8.4-10.5); CARBON DIOXIDE 27 mmol/L (21-33); CHLORIDE 105 mmol/L (98-107); GFR AFRICAN-AMERICAN > 60; GLUCOSE,RANDOM 91 mg/dL (70-110); POTASSIUM 4.1 mmol/L (3.6-5.0); SODIUM 140 mmol/L (132-148); TOTAL PROTEIN 7.6 g/dL (5.8-8.3)
[2017-03-31] MEDS ORDERED: Potassium Chloride 20 mEq ER Tab PO SCH (08:00)
--- NOTE | 2017-03-31 08:50 | CARD ---
APPROVED REPORT EXAM: Two-dimensional and M-mode echocardiogram with Doppler and color Doppler. Other Information Quality : GoodRhythm : INDICATION CVA/TIA ANGINA 2D DIMENSIONS Left Atrium (2D)3.6 (1.6-4.0cm)IVSd1.0 (0.7-1.1cm) LVDd3.8 (3.9-5.9cm)PWd1.1 (0.7-1.1cm) LVDs2.6 (2.5-4.0cm)FS (%) 31.9 % LVEF (%)60.0 (>50%) M-Mode DIMENSIONS Aortic Root3.20 (2.2-3.7cm)Aortic Cusp Exc.1.80 (1.5-2.0cm) Aortic Valve AoV Peak Elseithr288.0cm/s Mitral Valve MV E Nsdhcrns13.2cm/sMV A Ylylnyfh25.3cm/sE/A ratio0.8 TDI Lateral E' Peak V6.24cm/sMedial E' Peak V5.85cm/sE/Lateral E'11.1 E/Medial E'11.8 Pulmonary Valve PV Peak Crupghcm80.6cm/sPV Peak Grad.3mmHg Tricuspid Valve TR Peak [id number] [id number] Peak Gr.18mmHg [id number] LEFT VENTRICLE The left ventricle is normal size. There is normal left ventricular wall thickness. The left ventricular function is normal. The left ventricular ejection fraction is within the normal range. There is normal LV segmental wall motion. RIGHT VENTRICLE The right ventricle is normal size. ATRIA The left atrium size is normal. The right atrium size is normal. The interatrial septum is intact with no evidence for an atrial septal defect. AORTIC VALVE The aortic valve is normal in structure. MITRAL VALVE The mitral valve is normal in structure. TRICUSPID VALVE The tricuspid valve is normal in structure. There is trace to mild tricuspid regurgitation. PULMONIC VALVE The pulmonary valve is normal in structure. There is trace pulmonic valvular regurgitation. GREAT VESSELS The aortic root is normal in size. PERICARDIAL EFFUSION There is no pericardial effusion. <Conclusion> The left ventricle is normal size. There is normal left ventricular wall thickness. The left ventricular function is normal.
[2017-03-31] MEDS: Enoxaparin 40 mg Syringe SC SCH (09:18)
[2017-03-31 12:30] VITALS: BP 156/88; PULSE 115; RESP 21; TEMP 98
--- NOTE | 2017-03-31 12:49 | CP.PCM.DIS ---
<Vicky Alanis - Last Filed: 03/31/17 12:49> Provider - Provider Date of Admission: 03/29/17 20:05 Attending physician: Keena Brand MD Primary care physician: Gail Harley Consults: Neuro [facility] Cardiology David Time Spent in preparation of Discharge (in minutes): 60 Diagnosis - Discharge Diagnosis (1) TIA (transient ischemic attack) Status: Acute (2) Syncope Status: Acute (3) Angina at rest Status: Acute (4) Chest pain Status: Acute Hospital Course - Lab Results Lab Results: Most Recent Lab Values WBC 5.1 10^3/ul (4.5-11.0) 03/31/17 05:50 RBC 4.21 10^6/uL (3.5-6.1) 03/31/17 05:50 Hgb 12.0 g/dL (12.0-16.0) 03/31/17 05:50 Hct 37.5 % (36.0-48.0) 03/31/17 05:50 MCV 89.1 fl (80.0-105.0) 03/31/17 05:50 MCH 28.5 pg (25.0-35.0) 03/31/17 05:50 MCHC 32.0 g/dl (31.0-37.0) 03/31/17 05:50 RDW 14.0 % (11.5-14.5) 03/31/17 05:50 Plt Count 199 10^3/uL (120.0-450.0) 03/31/17 05:50 MPV 9.4 fl (7.0-11.0) 03/31/17 05:50 Gran % 63.6 % (50.0-68.0) 03/31/17 05:50 Lymph % (Auto) 22.9 % (22.0-35.0) 03/31/17 05:50 Hill % (Auto) 9.8 % (1.0-6.0) H 03/31/17 05:50 Eos % (Auto) 3.5 % (1.5-5.0) 03/31/17 05:50 Baso % (Auto) 0.2 % (0.0-3.0) 03/31/17 05:50 Gran # 3.24 (1.4-6.5) 03/31/17 05:50 Lymph # 1.2 (1.2-3.4) 03/31/17 05:50 Hill # 0.5 (0.1-0.6) 03/31/17 05:50 Eos # 0.2 (0.0-0.7) 03/31/17 05:50 Baso # 0.01 K/mm3 (0.0-2.0) 03/31/17 05:50 PT 12.0 SECONDS (9.4-12.5) 03/29/17 16:32 INR 1.10 (0.93-1.08) H 03/29/17 16:32 APTT 28.5 Seconds (25.1-36.5) 03/29/17 16:32 D-Dimer, Quantitative 218 ng/mL (0-243) 03/29/17 16:32 Sodium 140 mmol/L (132-148) 03/31/17 05:50 Potassium 4.1 mmol/L (3.6-5.0) 03/31/17 05:50 Chloride 105 mmol/L (98-107) 03/31/17 05:50 Carbon Dioxide 27 mmol/L (21-33) 03/31/17 05:50 Anion Gap 11 (10-20) 03/31/17 05:50 BUN 19 mg/dL (7-21) 03/31/17 05:50 Creatinine 0.8 mg/dl (0.7-1.2) 03/31/17 05:50 Est GFR ( Amer) > 60 03/31/17 05:50 Est GFR (Non-Af Amer) > 60 03/31/17 05:50 POC Glucose (mg/dL) 81 mg/dL (65-110) 03/29/17 21:40 Random Glucose 91 mg/dL (70-110) 03/31/17 05:50 Hemoglobin A1c 5.4 % (4.2-6.5) 03/29/17 15:28 Calcium 9.2 mg/dL (8.4-10.5) 03/31/17 05:50 Total Bilirubin 0.9 mg/dL (0.2-1.3) 03/31/17 05:50 AST 43 U/L (14-36) H D 03/31/17 05:50 ALT 21 U/L (7-56) 03/31/17 05:50 Alkaline Phosphatase 114 U/L (38-126) 03/31/17 05:50 Troponin I < 0.01 ng/mL 03/30/17 03:20 NT-Pro-B Natriuret Pep 69.2 pg/mL (0-450) 03/29/17 15:28 Total Protein 7.6 g/dL (5.8-8.3) 03/31/17 05:50 Albumin 3.8 g/dL (3.0-4.8) 03/31/17 05:50 Globulin 3.8 gm/dL 03/31/17 05:50 Albumin/Globulin Ratio 1.0 (1.1-1.8) L 03/31/17 05:50 Triglycerides 218 mg/dL (35-160) H 03/29/17 15:28 Cholesterol 217 mg/dL (130-200) H 03/29/17 15:28 LDL Cholesterol Direct 119 mg/dL (0-129) 03/29/17 15:28 HDL Cholesterol 57 mg/dL (29-60) 03/29/17 15:28 TSH 3rd Generation 3.88 mIU/mL (0.46-4.68) 03/29/17 22:03 Blood Type O POSITIVE 03/29/17 15:28 Blood Type Confirm O POSITIVE 03/29/17 15:45 Antibody Screen Negative 03/29/17 15:28 BBK History Checked No verified bt 03/29/17 15:28 - Hospital Course Hospital Course: 52 years old female with hx of HTN and recent onset angina, presents with 1 day of left sided numbness, weakness, and a syncopal episode. She woke up today at 8:00 with left leg numbness that gradually progressed up the trunk to the left face, with concurrent weakness, namely in the left lower extremity. By 12:00 she had dysesthesias affecting the left side of the face and body. Furthermore, at 2:19 PM she passed out in the restroom. This passing out was witnessed, and the observer states she was shaky before falling, but not convulsing, loss of bowel or bladder incontinence. The patient reports hitting the top of head, but denies any pain at the moment. The patient admits to LOC for 5-10 seconds, and was woken up by a grand daughter. EMS was called and the patient was brought to [facility]. She admits to blurry vision and genrealized weakness preceding the passing out, but denies any palpitations, chest pain, nausea, tongue biting, or convulsions. Important to note, patient recently was prescribed NG SL for chest pain. She reports chest pain associated with exertion and dyspnea for which her PMD prescribed her NG SL on Monday. She reports taking it twice since then (Monday and Monday, but denies taking it today). Brain MRI, CT head neg for any acute ischemic events or fracture. CXR was also negative for any infiltrates. EKG and troponins were negative x3. Echocardiogram showed normal EF, no atrial/ventricular dilatation, or valvular abnormalities. Carotid US showed 20-39% proximal ICA stenosis. Patient was given 325 mg ASA on arrival, and started on daily baby Aspirin and Lipitor 40 mg daily. Patient's potassium was found to be low, was replaced and started on Kdur 20 meq daily as he takes a K wasting diuretic, Hydrochlorothiazide. PT evaluation was obtained and recommended home with no services required. Cardiology and Neurology consults were also obtained. No further recommendations. Patient is discharged home on her previous antihypertensive meds and daily baby ASA, statin and K dur. She and daughter are well educated about the medication regimen. - Date & Time of H&P Date of H&P: 03/29/17 Time of H&P: 21:24 Discharge Exam - Additional Findings Additional findings: - Constitutional Appears: Well, Non-toxic - Head Exam Head Exam: ATRAUMATIC, NORMOCEPHALIC - Eye Exam Eye Exam: EOMI, Normal appearance Pupil Exam: NORMAL ACCOMODATION, PERRL - ENT Exam ENT Exam: Mucous Membranes Moist, Normal Oropharynx - Neck Exam Neck exam: Positive for: Normal Inspection - Respiratory Exam Respiratory Exam: Clear to Auscultation Bilateral, NORMAL BREATHING PATTERN - Cardiovascular Exam Cardiovascular Exam: RRR, +S1, +S2 - GI/Abdominal Exam GI & Abdominal Exam: Normal Bowel Sounds, Soft - Extremities Exam Extremities exam: Positive for: normal inspection, pedal edema. Negative for: calf tenderness - Back Exam Back exam: NORMAL INSPECTION. absent: CVA tenderness (L), CVA tenderness (R) - Neurological Exam Neurological exam: Alert, CN II-XII Intact, Oriented x3 Additional comments: 5/5 motor strength b/l thruout and sensation intact b/l Discharge Plan - Discharge Medications Prescriptions: Aspirin [Ecotrin] 81 mg PO 0800 30 Days tabec Atorvastatin [Lipitor] 40 mg PO DIN 30 Days tab Potassium Chloride [K-Dur 20 mEq ER Tab] 20 meq PO BRK #30 tab - Follow Up Plan Condition: IMPROVED Disposition: HOME/ ROUTINE Patient education suggested?: Yes Instructions: Angina (DC), Transient Ischemic Attack (GEN), Chest Pain (DC), Chest Pain (GEN), Hypokalemia (DC), Syncope (DC) Additional Instructions: - You were diagnosed to have a transient ischemic attack. Please continue your home anti hypertenive meds. Start taking daily baby Aspirin and Lipitor 40 mg daily to prevent plaque buildup. - Your Potassium is low due to one of the antihypertensive meds you are taking. So also start taking Potassium supplement daily (you are given a 30 day supply). - Follow up with PMD in 1 week. - Spoke with black oxide coating equipment tender (Dr Hernandez). Does not recommend stress test outpatient. _ please return if any concerns. Nursing Please return to nearest emergency room or call 911 if symptoms return See care notes provided for further instruction Referrals: Gail Harley [Primary Care Provider] - <Keena Brand - Last Filed: 03/31/17 14:36> Provider - Provider Date of Admission: 03/29/17 20:05 Attending physician: Keena Brand MD Primary care physician: Gail [place] Hospital Course - Lab Results Lab Results: Most Recent Lab Values WBC 5.1 10^3/ul (4.5-11.0) 03/31/17 05:50 RBC 4.21 10^6/uL (3.5-6.1) 03/31/17 05:50 Hgb 12.0 g/dL (12.0-16.0) 03/31/17 05:50 Hct 37.5 % (36.0-48.0) 03/31/17 05:50 MCV 89.1 fl (80.0-105.0) 03/31/17 05:50 MCH 28.5 pg (25.0-35.0) 03/31/17 05:50 MCHC 32.0 g/dl (31.0-37.0) 03/31/17 05:50 RDW 14.0 % (11.5-14.5) 03/31/17 05:50 Plt Count 199 10^3/uL (120.0-450.0) 03/31/17 05:50 MPV 9.4 fl (7.0-11.0) 03/31/17 05:50 Gran % 63.6 % (50.0-68.0) 03/31/17 05:50 Lymph % (Auto) 22.9 % (22.0-35.0) 03/31/17 05:50 Hill % (Auto) 9.8 % (1.0-6.0) H 03/31/17 05:50 Eos % (Auto) 3.5 % (1.5-5.0) 03/31/17 05:50 Baso % (Auto) 0.2 % (0.0-3.0) 03/31/17 05:50 Gran # 3.24 (1.4-6.5) 03/31/17 05:50 Lymph # 1.2 (1.2-3.4) 03/31/17 05:50 Hill # 0.5 (0.1-0.6) 03/31/17 05:50 Eos # 0.2 (0.0-0.7) 03/31/17 05:50 Baso # 0.01 K/mm3 (0.0-2.0) 03/31/17 05:50 PT 12.0 SECONDS (9.4-12.5) 03/29/17 16:32 INR 1.10 (0.93-1.08) H 03/29/17 16:32 APTT 28.5 Seconds (25.1-36.5) 03/29/17 16:32 D-Dimer, Quantitative 218 ng/mL (0-243) 03/29/17 16:32 Sodium 140 mmol/L (132-148) 03/31/17 05:50 Potassium 4.1 mmol/L (3.6-5.0) 03/31/17 05:50 Chloride 105 mmol/L (98-107) 03/31/17 05:50 Carbon Dioxide 27 mmol/L (21-33) 03/31/17 05:50 Anion Gap 11 (10-20) 03/31/17 05:50 BUN 19 mg/dL (7-21) 03/31/17 05:50 Creatinine 0.8 mg/dl (0.7-1.2) 03/31/17 05:50 Est GFR ( Amer) > 60 03/31/17 05:50 Est GFR (Non-Af Amer) > 60 03/31/17 05:50 POC Glucose (mg/dL) 81 mg/dL (65-110) 03/29/17 21:40 Random Glucose 91 mg/dL (70-110) 03/31/17 05:50 Hemoglobin A1c 5.4 % (4.2-6.5) 03/29/17 15:28 Calcium 9.2 mg/dL (8.4-10.5) 03/31/17 05:50 Total Bilirubin 0.9 mg/dL (0.2-1.3) 03/31/17 05:50 AST 43 U/L (14-36) H D 03/31/17 05:50 ALT 21 U/L (7-56) 03/31/17 05:50 Alkaline Phosphatase 114 U/L (38-126) 03/31/17 05:50 Troponin I < 0.01 ng/mL 03/30/17 03:20 NT-Pro-B Natriuret Pep 69.2 pg/mL (0-450) 03/29/17 15:28 Total Protein 7.6 g/dL (5.8-8.3) 03/31/17 05:50 Albumin 3.8 g/dL (3.0-4.8) 03/31/17 05:50 Globulin 3.8 gm/dL 03/31/17 05:50 Albumin/Globulin Ratio 1.0 (1.1-1.8) L 03/31/17 05:50 Triglycerides 218 mg/dL (35-160) H 03/29/17 15:28 Cholesterol 217 mg/dL (130-200) H 03/29/17 15:28 LDL Cholesterol Direct 119 mg/dL (0-129) 03/29/17 15:28 HDL Cholesterol 57 mg/dL (29-60) 03/29/17 15:28 TSH 3rd Generation 3.88 mIU/mL (0.46-4.68) 03/29/17 22:03 Blood Type O POSITIVE 03/29/17 15:28 Blood Type Confirm O POSITIVE 03/29/17 15:45 Antibody Screen Negative 03/29/17 15:28 BBK History Checked No verified bt 03/29/17 15:28 Attending/Attestation - Attestation I have personally seen and examined this patient.: Yes I have fully participated in the care of the patient.: Yes I have reviewed all pertinent clinical information, including history, physical exam and plan: Yes Notes (Text): 03/31/17 14:31 52 year old female with past medical history of hypertension who presented with complaint of transient left sided weakness. She also complained of syncopal episode and intermittent episodes of chest pain. CT head and MRI brain were negative for acute findings. Echocardiogram and carotid dopplers were also reviewed. Serial cardiac enzymes were negative and ACS has been ruled out. She was seen by cardiology, neurology and PT evaluation. She is on aspirin, atenolol and statin. Overall her symptoms have improved. She is discharged home to follow up with her pmd. Follow up with black oxide coating equipment tender (reports has an appointment upcoming month). Keena Brand MD Hospitalist.
[2017-03-31] MEDS ORDERED: Potassium Chloride 20 mEq ER Tab PO ONE (17:18)
== END 2017-03-31 13:09 | disposition home or self-care (01) ==
LOC: ED 14:53 → ERH 20:05 → 2RSO 21:33
PROVIDERS: ADMIT Internal Medicine; ATTEND Internal Medicine
DX: G45.9 Transient cerebral ischemic attack, unspecified (principal); I20.9 Angina pectoris, unspecified; R53.1 Weakness; I10 Essential (primary) hypertension; I65.23 Occlusion and stenosis of bilateral carotid arteries; E87.6 Hypokalemia; E78.5 Hyperlipidemia, unspecified; M47.814 Spondylosis without myelopathy or radiculopathy, thoracic region; M19.012 Primary osteoarthritis, left shoulder; M19.011 Primary osteoarthritis, right shoulder; Z91.81 History of falling